=== PATIENT | male | born 1945 | race Caucasian/White ===

== ENCOUNTER 2017-08-26 11:06 | Emergency (ER) | payer MEDICARE, OTHER ==
--- NOTE | 2017-08-26 11:13 | ER Document Report ---
ED General - General Stated Complaint: VOMITING Time Seen by Provider: 08/26/17 11:12 - HPI Notes: Pleasant 72-year-old male presents with hematemesis and hematochezia. It all started this morning. Patient's stomach was "not feeling right yesterday but does not improve his pain. This morning he woke up profound nausea and threw up with bright red blood. Then another episode of loose stool diarrhea that was purple tarry in nature. Patient denies shortness of breath cough any syncope. Patient started Plavix at the end of June. - Related Data Allergies/Adverse Reactions: acetaminophen Allergy (Verified 08/26/17 12:17) aspirin [From Arthritis] Allergy (Verified 08/26/17 12:17) caffeine [From Arthritis] Allergy (Verified 08/26/17 12:17) oxycodone Allergy (Verified 08/26/17 12:17) Sulfa (Sulfonamide Antibiotics) Allergy (Verified 08/26/17 12:17) Past Medical History - Social History Smoking Status: Unknown if Ever Smoked Family History: None Review of Systems - Review of Systems Notes: REVIEW OF SYSTEMS: CONSTITUTIONAL: -fevers, -chills EENT: -eye pain, -difficulty swallowing, -nasal congestion CARDIOVASCULAR: -chest pain, -syncope. RESPIRATORY: -cough, -SOB GASTROINTESTINAL: Positive nausea, positive diarrhea, positive hematochezia, positive hemoptysis GENITOURINARY: -dysuria, -hematuria MUSCULOSKELETAL: -back pain, -neck pain SKIN: -rash or skin lesions. HEMATOLOGIC: -easy bruising or bleeding. LYMPHATIC: -swollen, enlarged glands. NEUROLOGICAL: -altered mental status or loss of consciousness, -headache, - neurologic symptoms PSYCHIATRIC: -anxiety, -depression. ALL OTHER SYSTEMS REVIEWED AND NEGATIVE. Physical Exam - Vital signs Vitals: Resp 13 08/26/17 11:25 - Notes Notes: PHYSICAL EXAMINATION: GENERAL: Well-appearing, well-nourished and in severe acute distress. HEAD: Atraumatic, normocephalic. EYES: Pupils equal round and reactive to light, extraocular movements intact, sclera anicteric, conjunctiva are pale ENT: nares patent, oropharynx clear without exudates. Moist mucous membranes. NECK: Normal range of motion, supple without lymphadenopathy LUNGS: Breath sounds clear to auscultation bilaterally and equal. No wheezes rales or rhonchi. HEART: Regular rate and rhythm without murmurs ABDOMEN: Soft, nontender, normoactive bowel sounds. No guarding, no rebound. No masses appreciated. Melena stool while taking Hemoccult. Purple bloody tarry per rectum. EXTREMITIES: Normal range of motion, no pitting or edema. No cyanosis. NEUROLOGICAL: Cranial nerves grossly intact. Normal speech, normal gait. Normal sensory and motor exams. PSYCH: Normal mood, normal affect. SKIN: Warm, Dry, normal turgor, no rashes or lesions noted. Course - Re-evaluation Re-evalutation: 08/26/17 12:25 Pleasant 72-year-old man presents with hematochezia and metastasis. Patient was started on Plavix about 6 weeks ago. Patient has no symptoms at this time. Patient has vital signs are stable within normal limits. Patient's initial hemoglobin greater than 11. Conjunctiva is nice and pink. Patient is typed and screened in the department. Patient has 2 large-bore IVs established. She had adequate fluid resuscitation. Patient also given emergent IV bolus plan to bisoprolol to help reduce the GI bleeding. Patient found to have antibodies. Consult blood bank to start the process for tracking and appropriate blood for possible resuscitation. Consult hospitalist. There is no GI doctors call or contact centre team leader today. Given patient is no history of varices or peptic ulcer disease suspicion is a spontaneous bleed secondary to Plavix. Hospitalist concurs patient will be admitted here for close monitoring will hold Plavix at this time. Consult cardiology. - Vital Signs Vital signs: Temp Pulse Resp BP Pulse Ox 13 97/59 L 100 08/26/17 12:03 08/26/17 12:03 08/26/17 12:03 - Laboratory Result Diagrams: 08/26/17 11:23 08/26/17 11:23 Laboratory results interpreted by me: 08/26/17 08/26/17 11:23 11:23 WBC 10.8 H Hgb 11.6 L Hct 34.9 L RDW 15.5 H Plt Count 125 L Seg Neutrophils % 83.0 H Lymphocytes % 8.6 L Absolute Neutrophils 9.0 H BUN 36 H Creatinine 1.28 H Est GFR ( Amer) 50 L Est GFR (Non-Af Amer) 41 L Direct Bilirubin 0.5 H Total Protein 5.6 L Albumin 3.3 L - EKG Interpretation by Me Additional EKG results interpreted by me: 08/26/17 11:57 Normal sinus rhythm 62 bpm, normal AL interval, no ischemic changes, right bundle branch block. Critical Care Note - Critical Care Note Total time excluding time spent on procedures (mins): 38 Discharge - Discharge Clinical Impression: GI bleed Qualifiers: GI bleed type/associated pathology: unspecified gastrointestinal hemorrhage type Qualified Code(s): K92.2 - Gastrointestinal hemorrhage, unspecified Condition: Fair Disposition: ADMITTED INPATIENT Admitting Provider: Hospitalist - Dr. Sarmiento Unit Admitted: Telemetry Referrals: JORGE VICKERS MD [Primary Care Provider] - Follow up as needed
[2017-08-26] MEDS ORDERED: NORMAL SALINE 1000 ML 1,000 ML IV ONE (11:28)
[2017-08-26] MEDS ORDERED: PANTOPRAZOLE SODIUM 40 MG VIAL IV ONE (11:29)
[2017-08-26] MEDS ORDERED: ONDANSETRON 4 MG TAB.RAPDIS PO ONE (11:30)
[2017-08-26 11:41] LABS: ABSOLUTE BASOPHILS # (AUTO) 0.1 10^3/uL (0.0-0.2); ABSOLUTE LYMPHOCYTES (AUTO) 0.9 10^3/uL (0.5-4.7); ABSOLUTE MONOCYTES (AUTO) 0.8 10^3/uL (0.1-1.4); BASOPHILS % (AUTO) 0.5 % (0-2); EOSINOPHILS % (AUTO) 0.3 % (0-6); HEMATOCRIT 34.9 % (37.9-51.0); HEMOGLOBIN 11.6 g/dL (13.5-17.0); LYMPHOCYTES % (AUTO) 8.6 % (13-45); MEAN CORPUSCULAR HEMOGLOBIN 31.2 pg (27.0-33.4); MEAN CORPUSCULAR HGB CONC 33.4 g/dL (32.0-36.0); MEAN CORPUSCULAR VOLUME 94 fl (80-97); MONOCYTES % (AUTO) 7.6 % (3-13); PLATELET COUNT 125 10^3/uL (150-450); RED BLOOD COUNT 3.73 10^6/uL (3.72-5.28); RED CELL DISTRIBUTION WIDTH 15.5 % (11.5-14.0); TOTAL CELLS COUNTED % (AUTO) 100 %; WHITE BLOOD COUNT 10.8 10^3/uL (4.0-10.5)
[2017-08-26 11:50] LABS: INTERNATIONAL RATION (INR) 1.04; PROTHROMBIN TIME 14.1 SEC (11.4-15.4)
[2017-08-26 11:51] LABS: PARTIAL THROMBOPLASTIN TIME 24.1 SEC (23.5-35.8)
[2017-08-26 11:52] LABS: ALANINE AMINOTRANSFERASE 25 U/L (9-52); ALBUMIN 3.3 g/dL (3.5-5.0); ALKALINE PHOSPHATASE 65 U/L (38-126); ANION GAP 10 (5-19); ASPARTATE AMINO TRANSFERASE 21 U/L (14-36); BILIRUBIN,DIRECT 0.5 mg/dL (0.0-0.4); BILIRUBIN,TOTAL 0.7 mg/dL (0.2-1.3); BLOOD UREA NITROGEN 36 mg/dL (7-20); CALCIUM 8.6 mg/dL (8.4-10.2); CARBON DIOXIDE 27 mmol/L (22-30); CHLORIDE 107 mmol/L (98-107); GLUCOSE 110 mg/dL (75-110); POTASSIUM 4.3 mmol/L (3.6-5.0); TOTAL PROTEIN 5.6 g/dL (6.3-8.2)
[2017-08-26] MEDS ORDERED: FENTANYL CITRATE INJ/PF 100 MCG/2 ML AMPUL IV ONE (12:54)
--- NOTE | 2017-08-26 14:01 | RADIOLOGY REPORT (SQ) ---
EXAM DESCRIPTION: KUB/ABDOMEN (SINGLE VIEW) COMPLETED DATE/TIME: 08/26/2017 1:52 pm REASON FOR STUDY: NG tube placement COMPARISON: None. NUMBER OF VIEWS: One view. TECHNIQUE: Supine radiographic image of the abdomen acquired. LIMITATIONS: None. FINDINGS: Nasogastric tube tip is in left upper quadrant overlying stomach. Multiple clips to right of midline. No obstruction. IMPRESSION: Nasogastric tube in the stomach. Reading location - IP/workstation name: [email or web address]
[2017-08-26 14:48] VITALS: BP 106/60
--- NOTE | 2017-08-26 16:32 | EKG REPORT ---
SEVERITY:- ABNORMAL ECG - SINUS RHYTHM RBBB AND LAFB PROBABLE LVH WITH SECONDARY REPOL ABNRM : Confirmed by: Katlyn Mann 26-Aug-2017 16:31:01
== END 2017-08-26 15:10 | disposition short-term general hospital (02) ==
LOC: ER 11:06 → EDSEX 11:06 → UNDOADMIN 12:40 → EH 12:40 → UNDODISIN 15:10
DX: K92.2 Gastrointestinal hemorrhage, unspecified (principal); K92.0 Hematemesis; K92.1 Melena; R19.7 Diarrhea, unspecified
CPT/HCPCS: 93005; 99291; 96361; 96374; 96375; 86900; 86901; 36415; 86870; 86850; 85025; 85610; 85730; 80076; 80048; 84484; 74018; 93010; J3010; C9113; J7030; S0164